=== PATIENT | female | born 1945 ===

== ENCOUNTER 2019-02-09 07:28 | Emergency (ER) | payer OTHER ==
[~2019-02-09] VITALS: Ht 162.6 cm; Wt 83.0 kg
[~2019-02-09 07:28] MED LIST: ARICEPT10 MG; ASA81 MG; AVALIDE 150-12.1 TA1 PO; BUDEPRION XL300 MG; KLONOPIN0.5 MG/TAB PO; LAMISIL15 GM TP; LOSARTAN-HCTZ1 EAC2; NAMENDA10 MG; OSEL75CA PO; SULAR10 MG PO; SYNTHROID100 MCG; TUSSI PRES-B L120 M1 PO; VERAPAMIL ER180 MG; ZANTAC300 MG
[2019-02-09] MEDS ORDERED: LAMOTRIGINE200 MG PO (07:56)
[2019-02-09] MEDS ORDERED: PROTONIX40 MG PO (07:57)
[2019-02-09] MEDS ORDERED: COD LIVER OIL1 EACH PO (07:57)
[2019-02-09] MEDS ORDERED: ATACAND HCT 161 EACH PO (07:58)
[2019-02-09] MEDS ORDERED: MUCINEX DM ER1 EAC1 PO (13:05)
[2019-02-09] MEDS ORDERED: XOPENEX CO1.25 MG/0. IH (13:05)
[2019-02-09] MEDS ORDERED: TUSSIONEX PENN115 ML PO (13:05)
[2019-02-09] MEDS ORDERED: ZITHROMAX500 MG PO (13:05)
[2019-02-09] MEDS ORDERED: BUDESONIDE0.5 MG/2 M IH (13:05)
== END 2019-02-09 13:20 ==
LOC: ER 07:28
DX: J06.9 Acute upper respiratory infection, unspecified (principal)

== ENCOUNTER → 2019-10-10 | Emergency (ER) | payer OTHER ==
[~2019-10-10] VITALS: Ht 160 cm; Wt 85.7 kg
[~2019-10-10] MED LIST changes: +ATACAND HCT 161 EACH PO; +BUDESONIDE0.5 MG/2 M IH; +BUSPIRONE HCL5 MG; +COD LIVER OIL1 EACH PO; +LAMOTRIGINE200 MG PO; +MUCINEX DM ER1 EAC1 PO; +PROTONIX40 MG PO; +TUSSIONEX PENN115 ML PO; +XOPENEX CO1.25 MG/0. IH; +ZITHROMAX500 MG PO
== END | disposition left against medical advice (07) ==
LOC: ER 11:35
DX: Z53.20 Procedure and treatment not carried out because of patient's decision for unspecified reasons (principal)

== ENCOUNTER 2022-10-02 07:46 | Outpatient (CLI) | payer OTHER | END 2022-10-02 07:51 | disposition home or self-care (01) | LOC: RX STUDY 07:46 | PROVIDERS: ATTEND Urology | DX: N39.41 Urge incontinence (principal); N81.10 Cystocele, unspecified | CPT/HCPCS: 51600; 74455; A9698 ==

== ENCOUNTER 2023-06-25 07:29 | Outpatient (CLI) | payer OTHER ==
[~2023-06-25 07:29] MED LIST changes: +VERELAN PM100 MG PO
== END 2023-06-25 07:36 | disposition home or self-care (01) ==
LOC: RX STUDY 07:29
PROVIDERS: ATTEND Internal Medicine Gastroenterology
DX: R13.10 Dysphagia, unspecified (principal)